=== PATIENT | male | born 1945 | race Two or more races ===

== ENCOUNTER 2024-09-07 11:33 | Inpatient (IN) | payer OTHER ==
[2024-09-06] MEDS: SODIUM CHLORIDE 0.9% 1,000 ML IV SCH (23:30)
[~2024-09-07] VITALS: Ht 165.1 cm; Wt 73.7 kg
[2024-09-07 01:00] VITALS: BP 123/60; PULSE 82; RESP 17; TEMP 98.2; O2SAT 97
--- NOTE | 2024-09-07 11:47 | ED.PDOC ---
History of Present Illness HPI Comments 79Y M with PMHx DM and UTI presents to ED via EMS for chief complaint general weakness x1day. Pt states he was dx with UTI by PCP and finished first round of abx 2 days ago. Symptoms of dysuria, urinary frequency, urgency, and LLQ abd pain did not resolve so pt started second round of abx yesterday. Per pt, he began to feel too weak to walk yesterday. Upon EMS arrival to scene, BS was 208 and pt was able to stand and walk with assistance. EMS did not notice the pt leaning to either side. Upon ED arrival, pt is awake, alert, and speaking in full sentences. No other symptoms reported. Time Seen by MD: 11:35 Reviewed Notes: Nurses Notes, Radio Television Technical Director Notes, Medications, Allergies Allergies: Coded Allergies: NO KNOWN ALLERGIES (Unverified , 09/07/24) Information Source: Patient, Emergency Med Personnel Mode of Arrival: EMS Severity: Moderate Timing: Days Duration: Since onset Prehospital treatment: Accucheck Past Medical History PAST MEDICAL HISTORY: DM, UTI'S Surgical History: Denies all surgeries Family History Family History: Unknown Social History Smoker: Non-Smoker Alcohol: Denies ETOH Use Drugs: Denies Drug Use Lives In: Home Constitutional: reports: weakness; denies: chills, diaphoresis, fatigue, fever, malaise, sweats, others EENTM: denies: blurred vision, double vision, ear bleeding, ear discharge, ear drainage, ear pain, ear ringing, eye pain, eye redness, hearing loss, mouth pain, mouth swelling, nasal discharge, nose bleeding, nose congestion, nose pain, photophobia, tearing, throat pain, throat swelling, voice changes, others Respiratory: denies: cough, hemoptysis, orthopnea, SOB at rest, shortness of breath, SOB with excertion, stridor, wheezing, others Cardiovascular: denies: chest pain, dizzy spells, diaphoresis, Dyspnea on exertion, edema, irregular heart beat, left arm pain, lightheadedness, palpitations, PND, syncope, others Gastrointestinal: reports: abdominal pain; denies: abdomen distended, blood streaked bowels, constipated, diarrhea, dysphagia, difficulty swallowing, hematemesis, melena, nausea, poor appetite, poor fluid intake, rectal bleeding, rectal pain, vomiting, others Genitourinary: reports: dysuria, frequency, urgency; denies: burning, flank pain, hematuria, incontinence, penile discharge, penile sore, pain, testicle pain, testicle swelling, others Neurological: denies: dizziness, fainting, headache, left sided numbness, left sided weakness, numbness, paresthesia, pre-existing deficit, right sided numbn ess, right sided weakness, seizure, speech problems, tingling, tremors, weakness, others Musculoskeletal: denies: back pain, gout, joint pain, joint swelling, muscle pain, muscle stiffness, neck pain, others Integumetry: denies: bruises, change in color, change in hair/nails, dryness, laceration, lesions, lumps, rash, wounds, others Allergic/Immunocompromised: denies: Difficulty Healing, Frequent Infections, Hives, Itching, others Hematologic/Lymphatic: denies: anemia, blood clots, easy bleeding, easy bruising, swollen glands, others Endocrine: denies: excessive hunger, excessive sweating, excessive thirst, excessive urination, flushing, intolerance to cold, intolerance to heat, unexplained weight gain, unexplained weight loss, others Psychiatric: denies: anxiety, bipolar disorder, depression, hopeless, panic disorder, schizophrenia, sleepless, suicidal, others All Other Systems: Reviewed and Negative Physical Exam General Appearance: No Apparent Distress, Normal HEENT: Normal ENT Inspection, Pharynx Normal, TMs Normal Neck: Full Range of Motion, Non-Tender, Normal, Normal Inspection Respiratory: Chest Non-Tender, Lungs Clear, No Accessory Muscle Use, No Respiratory Distress, Normal Breath Sounds Cardiovascular: No Edema, No JVD, No Murmur, No Gallop, Normal Peripheral Pulses, Regular Rate/Rhythm Breast Exam: Deferred Gastrointestinal: LLQ, No Organomegaly, No Pulsatile Mass, Normal Bowel Sounds, Tenderness Genitalia: Deferred Pelvic: Deferred Rectal: Deferred Extremities: No calf tenderness, Normal capillary refill, Normal inspection, Normal range of motion, Non-tender, No pedal edema Musculoskeletal : Apperance: Normal Neurologic: Alert, senior technical program manager II-XII nml as Tested, No Motor Deficits, Normal Affect, Normal Mood, No Sensory Deficits Cerebellar Function: Normal Reflexes: Normal Skin: Dry, Normal Color, Warm Lymphatic: No Adenopathy Was a procedure done? Was a procedure done?: No EKG EKG : Pulse Rate (adult): 104 Murdock: LAD Cardiac Rhythm: ST Block: None Hypertrophy: None ST: Nonsp Differential Dx Considerations may include: cva, hypoglycemia, hypotension, sepsis, uti, pneumonia, electrolyte disorders, failure to thrive X-Ray, Labs, Meds, VS Vital Signs Date Time Temp Pulse Resp B/P (MAP) Pulse Ox O2 Delivery O2 Flow Rate FiO2 09/07/24 14:00 94 16 98/49 (65) 96 09/07/24 13:44 104 09/07/24 12:00 107 16 94/46 (62) 92 09/07/24 11:54 99 18 96 Nasal Cannula* 2 28 09/07/24 11:54 100.6 99 16 115/56 (75) 97 100.6 09/07/24 11:42 99.3 18 20 116/67 (83) 95 Lab Test 09/07/24 14:20 09/07/24 12:39 09/07/24 12:00 09/07/24 11:49 Range/Units Lactic Acid Level 0.9 0.4-2.0 mmol/L Troponin I High Sensitivity 3 L 3 L 3 L </=54 ng/L Urine Color Yellow Yellow Urine Clarity Cloudy H Clear Urine pH 5.5 5.0-9.0 Urine Specific [place] 1.015 1.001-1.035 Urine Protein 2+ H Negative Urine Ketones Negative Negative Urine Blood 2+ H Negative /uL Urine Nitrite 1+ H Negative Urine Bilirubin Negative Negative Urine Urobilinogen Normal Negative mg/dL Urine Leukocyte Esterase 3+ Negative /uL Urine RBC 66 0 - 3 /hpf Urine WBC 6201 0 - 3 /hpf Urine WBC Clumps Present None Seen /hpf Urine Squamous Epithelial Cells Few <5 /hpf Urine Bacteria Mod H None Seen /hpf Urine Glucose Trace Normal mg/dL White Blood Count 8.1 4.4-10.8 10^3/uL Red Blood Count 3.67 L 4.5-5.90 10^6/uL Hemoglobin 11.3 L 13.5-17.5 g/dL Hematocrit 33.4 L 41.0-53.0 % Mean Corpuscular Volume 91.1 80.0-100.0 fL Mean Corpuscular Hemoglobin 30.9 28.0-32.0 pg Mean Corpuscular Hemoglobin Concent 33.9 32.0-36.0 g/dL Red Cell Distribution Width 13.4 11.8-14.3 % Platelet Count 236 140-450 10^3/uL Mean Platelet Volume 7.0 6.9-10.8 fL Neutrophils (%) (Auto) 79.2 37.0-80.0 % Lymphocytes (%) (Auto) 12.0 10.0-50.0 % Monocytes (%) (Auto) 8.1 0.0-12.0 % Eosinophils (%) (Auto) 0.2 0.0-7.0 % Basophils (%) (Auto) 0.5 0.0-2.0 % Neutrophils # (Auto) 6.4 1.6-8.6 10 ^3/uL Lymphocytes # (Auto) 1.0 0.4-5.4 10 ^3/uL Monocytes # (Auto) 0.7 0-1.3 10 ^3/uL Eosinophils # (Auto) 0 0-0.8 10 ^3/uL Basophils # (Auto) 0 0-0.2 10 ^3/uL Nucleated Red Blood Cells 0.0 % Sodium Level 134 L 136-145 mmol/L Potassium Level 4.8 3.5-5.1 mmol/L Chloride Level 106 98-107 mmol/L Carbon Dioxide Level 21 20-31 mmol/L Anion Gap 7 5-15 Blood Urea Nitrogen 25 H 9-23 mg/dL Creatinine 1.88 H 0.700-1.30 mg/dL Glomerular Filtration Rate Calc 35 >90 mL/min BUN/Creatinine Ratio 13.3 10.0-20.0 Serum Glucose 211 H 74-106 mg/dL Calcium Level 8.5 L 8.7-10.4 mg/dL Current Medications Medications (Trade) Dose Ordered Sig/[place] Route Start Time Stop Time Status Last Admin Ceftriaxone Sodium 50 ml @ 100 mls/hr ONCE ONCE IV 09/07/24 14:00 09/07/24 14:29 DC 09/07/24 14:36 Sodium Chloride 2,100 ml @ 2,100 mls/hr ONCE ONCE IV 09/07/24 14:00 09/07/24 14:59 DC 09/07/24 14:[address] [address] Ph: [phone] DIAGNOSTIC IMAGING Diagnostic Imaging Report : [id number] Signed PATIENT: DANY CARDONA ACCT: [id number] UNIT: [id number] : 1945 LOC: ER ROOM / BED: / AGE / SEX: 79 / M ADM STATUS: REG ER SERVICE 36 ORDERING PHYSICIAN: LEANNE HILLS MD PROCEDURE(s): CXRP - CHEST PORTABLE REASON: weakness ORDER NUMBER(s): [id number], ACCESSION NUMBER(s): [id number] CHEST RADIOGRAPH Indication: weakness Technique: Single frontal view of the chest was obtained COMPARISON: None FINDINGS: Lines and Tubes: None Lungs: Clear Pleura: No effusion. No pneumothorax. Cardiomediastinal contours: Unremarkable Bones: Unremarkable IMPRESSION: No acute disease. ATED BY: BRAYDEN MEYERS MD DICTATED DATE/TIME: 09/07/241223 SIGNED BY: BRAYDEN MEYERS MD SIGNED DATE/TIME: 09/07/241223 CC: [place] [id number] Ph: [phone] DIAGNOSTIC IMAGING Diagnostic Imaging Report : [id number] Signed PATIENT: DANY CARDONA ACCT: [id number] UNIT: [id number] : 1945 LOC: ER ROOM / BED: / AGE / SEX: 79 / M ADM STATUS: REG ER SERVICE ORDERING PHYSICIAN: LEANNE HILLS MD PROCEDURE(s): HWOCT - HEAD WITHOUT CONTRAST REASON: leg weakness ORDER NUMBER(s): [id number], ACCESSION NUMBER(s): [id number] EXAM: CT HEAD WITHOUT CONTRAST INDICATION: leg weakness TECHNIQUE: CT of the head without intravenous contrast. Radiation Dose : 1. Head: CT Dose: CTDI volume is 19.3 mGy. Dose-length product is 2557.3 mGy*cm The dose indicators for CT are the volume Computed Tomography (CT) Dose Index (CTDIvol) and the Dose Length Product (DLP), and are measured in units of mGy and mGy-cm, respectively. These indicators are not patient dose, but values generated from the CT scanner acquisition factors. The report includes radiation exposure data for exposures received during this examination. COMPARISON: None FINDINGS: There is no evidence of acute intracranial hemorrhage, extra-axial collection, mass effect, midline shift, herniation or hydrocephalus. The ventricles, sulci and cisterns are age appropriate. The nelson-white differentiation is intact. Patchy periventricular and subcortical white matter hypoattenuation is nonspecific but may be related to small vessel ischemic disease. Mild mucosal opacification of the ethmoid air cells. The surrounding soft tissues and osseous structures are unremarkable. IMPRESSION: No acute intracranial abnormality. Radiation optimization: All CT scans at this facility use at least one of these dose optimization techniques: automated exposure control mA and/or kV adjustment per patient size (includes targeted exams where dose is matched to clinical indication) or iterative reconstruction. ATED BY: BRAYDEN MEYERS MD DICTATED DATE/TIME: 09/07/241223 SIGNED BY: BRAYDEN MEYERS MD SIGNED DATE/TIME: 09/07/24 122 CC: [place] [id number] Ph: [phone] DIAGNOSTIC IMAGING Diagnostic Imaging Report : [id number] Signed PATIENT: DANY CARDONA ACCT: [id number] UNIT: [id number] : 1945 LOC: ER ROOM / BED: / AGE / SEX: 79 / M ADM STATUS: REG ER SERVICE 1130 ORDERING PHYSICIAN: LEANNE HILLS MD PROCEDURE(s): ABPL - CT AB PEL WO CON-NO ORAL OR IV REASON: pain ORDER NUMBER(s): [id number], ACCESSION NUMBER(s): [id number] CT ABDOMEN AND PELVIS WITHOUT CONTRAST CLINICAL HISTORY: pain TECHNIQUE: Multiple contiguous axial images of the abdomen and pelvis without intravenous contrast. The images were reformatted degenerate coronal and sagittal reconstructions. All CT scans at this medical facility are performed using dose modulation techniques as appropriate to a performed exam including the following:Automated exposure control was utilized; adjustment of the MA and/or KV according to patient size; and use of iterative reconstruction technique. Radiation Dose Information: CT Dose: CTDI volume is 19 mGy. Dose-length product is 1198 mGy*cm Comparison: None FINDINGS: Evaluation of the abdomen and pelvis is limited without intravenous contrast. The liver, gallbladder, pancreas, kidneys, adrenal glands, and spleen appear within normal limits. There is no gross evidence of abdominal lymphadenopathy. There is no free fluid or free air. The stomach grossly appears unremarkable. The small and large bowel loops demonstrate normal caliber. Normal caliber air-filled appendix is seen in the right lower quadrant abdomen. The abdominal aorta and IVC appear within normal limits. The prostate gland is enlarged. A poorly filled bladder demonstrates circumferential wall thickening likely related to chronic outlet obstruction.. There is no gross evidence of a pelvic mass. There is no free fluid collection. Lung bases are clear. There is no acute osseous abnormality. IMPRESSION: 1. There is no acute process in the abdomen and pelvis. 2. Prostatomegaly with likely chronic bladder outlet obstruction. HS:Y ATED BY: MICHAEL ARORA MD DICTATED DATE/TIME: 09/07/24 1229 SIGNED BY: MICHAEL ARORA MD SIGNED DATE/TIME: 09/07/24 1229 CC: Time of 1ST Reevaluation: 12:05 Reevaluation 1ST: Unchanged (cardiac rehabilitation specialist- st) Time of 2ND Reevaluation: 15:27 Reevaluation 2ND: Unchanged (cardiac rehabilitation specialist- st) Reevaluation 3RD: Improved (cardiac rehabilitation specialist nsr) Patient Education/Counseling: Diagnosis, Treatment, Prognosis, Need For Follow Up Family Education/Counseling: No Family Present Additional Information I reviewed the following notes from patient's past medical encounters: None The following tests were ordered, and results were reviewed by me: EKG, CBC, BMP, UA, Troponin x2, CXR, Head CT WO contrast, CT abd/pelvis WO contrast Additional Information was gathered from interviewing the following independent historians: EMS I reviewed and agreed with the following test results read by other providers: CXR, Head CT WO contrast, CT abd/pelvis WO contrast I discussed treatment and results with medical personnel. pt reportedly had finished a course of antibiotic for uti, but symptoms are not improved, so started a second course. he is now feeling weak, is relatively hypotensive, with UTI proven on UA. he may have uti with sepsis, causing hypotension and weakness. he will be admitted for further treatments. he does have enlarged prostate and evidence of bladder outlet obstruction. i will order a herrera to relieve any obstruction with evidence of a uti and sepsis. despite of the 30ml/kg, pt is still mildly hypotensive. pressor has been ordered but has not needed to be started yet. also due to the herrera relieve of the bladder volume, his BP may be unstable. i consulted Dr Anand, at [facility], who agreed to admit pt here. #[id number] Departure 1 Departure Time of Disposition: 15:25 Impression: Primary Impression: Generalized weakness Additional Impressions: Sepsis secondary to UTI Severe sepsis Renal insufficiency Disposition: ADMITTED INPATIENT Admit to: ICU Condition: Serious Discharged With: Self Critical Care Note Critical Care Time?: Yes (55 min-critical care time only) Critical care comment: Due to concerns for patients condition deteriorating, the care required my highest level of attention and readiness to intervene. I assessed the patient, reviewed the medical records, ordered the appropriate tests and treatments, then reassessed for results and responsiveness. I communicated with medical personnel and consultants and formulated a plan of care. Total critical care time excludes any procedures Stability Stability form required: No Heart Score Heart Score: Heart Score Response (Comments) Value History Slightly Suspicious 0 EKG Repolarization Disturb 1 Age >65 2 Risk Factors 1 or 2 risk factors 1 Troponin Normal limit 0 Total 4 I personally scribed for LEANNE HILLS MD ([facility]) on 09/07/24 at 11:47. Electronically submitted by Marline King ([email or web address]). I personally scribed for LEANNE HILLS MD ([email or web address]) on 09/07/24 at 12:31. Electronically submitted by Marline King ([email or web address]). I personally scribed for LEANNE HILLS MD ([email or web address]) on 09/07/24 at 12:32. Electronically submitted by Marline King ([employer]). I personally scribed for LEANNE HILLS MD ([facility]) on 09/07/24 at 12:35. Electronically submitted by Marline King ([email or web address]). LEANNE HILLS MD Sep 07, 2024 11:47
[2024-09-07 11:54] VITALS: PULSE 99; RESP 18; O2SAT 96
[2024-09-07 12:26] LABS: Basophils # (auto) 0 10 ^3/uL (0-0.2); Basophils % (auto) 0.5 % (0.0-2.0); Eosinophils # (auto) 0 10 ^3/uL (0-0.8); Eosinophils % (auto) 0.2 % (0.0-7.0); Hematocrit 33.4 % (41.0-53.0); Hemoglobin 11.3 g/dL (13.5-17.5); Mean Corpuscular Hemoglobin 30.9 pg (28.0-32.0); Mean Corpuscular Hgb Conc. 33.9 g/dL (32.0-36.0); Mean Corpuscular Volume 91.1 fL (80.0-100.0); Monocytes # (auto) 0.7 10 ^3/uL (0-1.3); Monocytes % (auto) 8.1 % (0.0-12.0); Neutrophils # (auto) 6.4 10 ^3/uL (1.6-8.6); Neutrophils % (auto) 79.2 % (37.0-80.0); Platelet Count (auto) 236 10^3/uL (140-450); Red Blood Cells 3.67 10^6/uL (4.5-5.90); Red Cell Distribution Width 13.4 % (11.8-14.3); White Blood Cell 8.1 10^3/uL (4.4-10.8)
--- NOTE | 2024-09-07 12:27 | DVH ---
CHEST RADIOGRAPH Indication: weakness Technique: Single frontal view of the chest was obtained COMPARISON: None FINDINGS: Lines and Tubes: None Lungs: Clear Pleura: No effusion. No pneumothorax. Cardiomediastinal contours: Unremarkable Bones: Unremarkable IMPRESSION: No acute disease.
--- NOTE | 2024-09-07 12:27 | DVH ---
EXAM: CT HEAD WITHOUT CONTRAST INDICATION: leg weakness TECHNIQUE: CT of the head without intravenous contrast. Radiation Dose : 1. Head: CT Dose: CTDI volume is 19.3 mGy. Dose-length product is 2557.3 mGy*cm The dose indicators for CT are the volume Computed Tomography (CT) Dose Index (CTDIvol) and the Dose Length Product (DLP), and are measured in units of mGy and mGy-cm, respectively. These indicators are not patient dose, but values generated from the CT scanner acquisition factors. The report includes radiation exposure data for exposures received during this examination. COMPARISON: None FINDINGS: There is no evidence of acute intracranial hemorrhage, extra-axial collection, mass effect, midline s hift, herniation or hydrocephalus. The ventricles, sulci and cisterns are age appropriate. The nelson-white differentiation is intact. Patchy periventricular and subcortical white matter hypoattenuation is nonspecific but may be related to small vessel ischemic disease. Mild mucosal opacification of the ethmoid air cells. The surrounding soft tissues and osseous structures are unremarkable. IMPRESSION: No acute intracranial abnormality. Radiation optimization: All CT scans at this facility use at least one of these dose optimization avani hniques: automated exposure control mA and/or kV adjustment per patient size (includes targeted exam s where dose is matched to clinical indication) or iterative reconstruction.
--- NOTE | 2024-09-07 12:32 | DVH ---
CT ABDOMEN AND PELVIS WITHOUT CONTRAST CLINICAL HISTORY: pain TECHNIQUE: Multiple contiguous axial images of the abdomen and pelvis without intravenous contrast. The images were reformatted degenerate coronal and sagittal reconstructions. All CT scans at this medical facility are performed using dose modulation techniques as appropriate t o a performed exam including the following:Automated exposure control was utilized; adjustment of the MA and/or KV according to patient size; and use of iterative reconstruction technique. Radiation Dose Information: CT Dose: CTDI volume is 19 mGy. Dose-length product is 1198 mGy*cm Comparison: None FINDINGS: Evaluation of the abdomen and pelvis is limited without intravenous contrast. The liver, gallbladder, pancreas, kidneys, adrenal glands, and spleen appear within normal limits. There is no gross evidence of abdominal lymphadenopathy. There is no free fluid or free air. The stomach grossly appears unremarkable. The small and large bowel loops demonstrate normal caliber . Normal caliber air-filled appendix is seen in the right lower quadrant abdomen. The abdominal aorta and IVC appear within normal limits. The prostate gland is enlarged. A poorly filled bladder demonstrates circumferential wall thickening likely related to chronic outlet obstruction.. There is no gross evidence of a pelvic mass. There is no free fluid collection. Lung bases are clear. There is no acute osseous abnormality. IMPRESSION: 1. There is no acute process in the abdomen and pelvis. 2. Prostatomegaly with likely chronic bladder outlet obstruction. HS:Y
[2024-09-07 12:36] LABS: Chloride 106 mmol/L (98-107); Potassium 4.8 mmol/L (3.5-5.1)
[2024-09-07 12:37] LABS: Anion Gap 7 (5-15); Carbon Dioxide 21 mmol/L (20-31)
[2024-09-07 12:42] LABS: BUN/Creatinine Ratio 13.3 (10.0-20.0); Calcium 8.5 mg/dL (8.7-10.4); Sodium 134 mmol/L (136-145)
[2024-09-07 12:45] LABS: Blood Urea Nitrogen 25 mg/dL (9-23); Glucose 211 mg/dL (74-106)
[2024-09-07 12:47] LABS: Urine Bacteria MOD /hpf (None Seen); Urine Blood 2+ /uL (Negative); Urine Protein, UAD 2+ (Negative); Urine Specific Gravity 1.015 (1.001-1.035); Urine Squamous Epithelial Cell FEW /hpf (<5); Urine Urobilinogen Normal (Negative); Urine WBC 6201 /hpf (0 - 3); Urine WBC Clumps PRESENT /hpf (None Seen); Urine pH 5.5 (5.0-9.0)
[2024-09-07 12:50] LABS: Urine Clarity Cloudy (Clear); Urine Color Yellow (Yellow)
[2024-09-07] MEDS: SODIUM CHLORIDE 0.9% 2,100 ML IV ONE (14:27)
[2024-09-07] MEDS: cefTRIAXone 1GM/50ML D5W 50 ML IV ONE (14:36)
[2024-09-07] MEDS ORDERED: ACETAMINOPHEN 325 MG TAB PO PRN (21:30)
[2024-09-07] MEDS ORDERED: DEXTROSE (50%) 50ML SYRG IV PRN (21:30)
[2024-09-07] MEDS ORDERED: ONDANSETRON HCL 4 MG/2 ML VIAL IV PRN (21:30)
[2024-09-07] MEDS ORDERED: DOCUSATE SOD 100 MG CAP PO PRN (21:30)
[2024-09-07] MEDS ORDERED: hydrALAZINE HCL 20 MG/ML VL IV PRN (21:30)
[2024-09-07 22:00] VITALS: PULSE 71; RESP 21; O2SAT 95
[2024-09-07] MEDS: ATORVASTATIN 20 MG TAB PO SCH (22:00)
[2024-09-07] MEDS: ACCU-CHEK COMFORT CURVE STRIP VI SCH (22:00)
[2024-09-07] MEDS: METOPROLOL TARTRATE 25 MG TAB PO SCH (22:00)
[2024-09-07] MEDS: InsuLIN REG 1unit/0.01ml Soln (100units/ml) SC SCH (22:53)
[2024-09-07] MEDS ORDERED: NITROGLYCERIN 0.4 MG SL TAB SL PRN (23:00)
[2024-09-07] MEDS ORDERED: MORPHINE SULFATE INJ 2 MG/ml SYRG IV PRN (23:00)
--- NOTE | 2024-09-07 23:00 | DVHHP2 ---
History of Present Illness Reason for Visit: Generalized weakness History of Present Illness The patient is a 79-year-old male with past medical history of DM, HTN, hyperlipidemia, and UTIs who presented to [facility] ED with complaint of generalized weakness. Patient reports he was diagnosed with UTI by PCP and finished first round of antibiotics 2 days ago. Patient continued to feel symptoms of dysuria, urinary frequency, urgency, and LLQ abdominal pain did not resolve so patient started second round of antibiotic yesterday. Patient was seen and evaluated in the ED, laboratory data shows WBC 8.1, platelets 236, sodium 134, potassium 4.8, BUN 25, creatinine 1.88, GFR 35, glucose 111, calcium 8.5, troponin three, urinalysis positive for urinary tract infection. Patient was started on IV antibiotic regimen Rocephin, please see medication orders section in the computer. On my assessment, patient denies chest pain, no headache, no dizziness, no abdominal pain, no nausea, no vomiting, no fever, no chills. Patient was admitted for further evaluation and medical management. Past Medical History DM, UTIs, HLD, and hypertension Past Surgical History Denies all surgeries Family History Reviewed, noncontributory to the management of this case. Past Social History The patient lives at home, denies smoking, alcohol or illicit drugs abuse. Review of Systems Constitutional: Yes: Weakness; No: Fever, Chills, Sweats, Malaise, Other Eyes: No: Pain, Vision change, Conjunctivae inflammation, Eyelid inflammation, Other, Redness ENT: No: Ear pain, Ear discharge, Nose pain, Nose discharge, Nose congestion, Mouth pain, Mouth swelling, Throat pain, Throat swelling, Other Respiratory: No: Cough, Dry, Shortness of breath, SOB with excertion, Wheezing, Hemoptysis, Pleuritic Pain, Sputum, Wheezing, Other Cardiovascular: No: Chest Pain, Palpitations, Orthopnea, Paroxysmal Noc. Dyspnea, Edema, Lt Headedness, Other Gastrointestinal: No: Nausea, Vomiting, Abdominal Pain, Diarrhea, Constipation, Melena, Hematochezia, Other Genitourinary: Dysuria, Frequency; No Incontinence, No Hematuria, No Retention, No Other Musculoskeletal: No: other, neck pain, shoulder pain, arm pain, back pain, hand pain, leg pain, foot pain Skin: No: Rash, Lesions, Jaundice, Bruising, Other Neurological: No: Weakness, Numbness, Incoordination, Change in speech, Confusion, Seizures, Other Allergies: Coded Allergies: NO KNOWN ALLERGIES (Unverified , 09/07/24) Medications Current Medications Medications Dose Ordered Sig/Ludwin Route Start Time Stop Time Status Last Admin Dose Admin Hydralazine HCl 10 mg Q6HP PRN IV 09/07/24 21:30 Atorvastatin Calcium 20 mg HS PO 09/07/24 22:00 09/07/24 22:00 20 MG Metoprolol Tartrate 25 mg BID PO 09/07/24 22:00 09/07/24 22:00 25 MG Ceftriaxone Sodium 50 ml @ 100 mls/hr DAILY@09 IV 09/08/24 09:00 Diagnostic Test (Pha) 1 strip ACHS 09/07/24 22:00 09/07/24 22:00 1 STRIP Insulin Human Regular HS SC 09/07/24 22:00 09/07/24 22:53 3 UNITS Insulin Human Regular AC SC 09/08/24 07:00 Dextrose 50 ml UD PRN IV 09/07/24 21:30 Sodium Chloride 1,000 ml @ 60 mls/hr [id number] IV 09/07/24 21:30 Acetaminophen/ Hydrocodone Bitart 1 tab Q4HP PRN PO 09/07/24 21:30 Ondansetron HCl 4 mg Q4HP PRN IV 09/07/24 21:30 Docusate Sodium 100 mg BIDPRN PRN PO 09/07/24 21:30 Acetaminophen 650 mg Q6HP PRN PO 09/07/24 21:30 Exam Vital Signs Vital Signs Date Time Temp Pulse Resp B/P (MAP) Pulse Ox O2 Delivery O2 Flow Rate FiO2 09/07/24 22:00 93 119/60 09/07/24 20:00 20 94 09/07/24 11:54 Nasal Cannula* 2 28 09/07/24 11:54 100.6 100.6 General Appearance: Alert, Oriented X3, Cooperative, No acute distress HEENT: Atraumatic, PERRLA, EOMI, Mucous membr. moist/pink Respiratory: Clear to auscultation, Normal air movement Cardiovascular: Regular rate, Normal S1, Normal S2, No murmurs Abdominal: Normal bowel sounds, Soft, No tenderness, No hepatospenomegaly, No masses Extremities: No clubbing, No cyanosis, No edema, Normal pulses, No tenderness/swelling Skin: No rashes, No breakdown, No significant lesion Neuro: Normal speech, Normal tone, Sensation intact, Cranial nerves 3-12 NL, Reflexes 2+, Other (Generalized weakness) Psych/Mental Status: Mental status NL, Mood NL Labs/Xrays Labs Test 09/07/24 20:16 09/07/24 16:29 09/07/24 12:00 09/07/24 11:49 Range/Units Troponin I High Sensitivity 4 </=54 ng/L Lactic Acid Level 1.1 0.4-2.0 mmol/L Urine Color Yellow Yellow Urine Clarity Cloudy H Clear Urine pH 5.5 5.0-9.0 Urine Specific [place] 1.015 1.001-1.035 Urine Protein 2+ H Negative Urine Ketones Negative Negative Urine Blood 2+ H Negative /uL Urine Nitrite 1+ H Negative Urine Bilirubin Negative Negative Urine Urobilinogen Normal Negative mg/dL Urine Leukocyte Esterase 3+ Negative /uL Urine RBC 66 0 - 3 /hpf Urine WBC 6201 0 - 3 /hpf Urine WBC Clumps Present None Seen /hpf Urine Squamous Epithelial Cells Few <5 /hpf Urine Bacteria Mod H None Seen /hpf Urine Glucose Trace Normal mg/dL White Blood Count 8.1 4.4-10.8 10^3/uL Red Blood Count 3.67 L 4.5-5.90 10^6/uL Hemoglobin 11.3 L 13.5-17.5 g/dL Hematocrit 33.4 L 41.0-53.0 % Mean Corpuscular Volume 91.1 80.0-100.0 fL Mean Corpuscular Hemoglobin 30.9 28.0-32.0 pg Mean Corpuscular Hemoglobin Concent 33.9 32.0-36.0 g/dL Red Cell Distribution Width 13.4 11.8-14.3 % Platelet Count 236 140-450 10^3/uL Mean Platelet Volume 7.0 6.9-10.8 fL Neutrophils (%) (Auto) 79.2 37.0-80.0 % Lymphocytes (%) (Auto) 12.0 10.0-50.0 % Monocytes (%) (Auto) 8.1 0.0-12.0 % Eosinophils (%) (Auto) 0.2 0.0-7.0 % Basophils (%) (Auto) 0.5 0.0-2.0 % Neutrophils # (Auto) 6.4 1.6-8.6 10 ^3/uL Lymphocytes # (Auto) 1.0 0.4-5.4 10 ^3/uL Monocytes # (Auto) 0.7 0-1.3 10 ^3/uL Eosinophils # (Auto) 0 0-0.8 10 ^3/uL Basophils # (Auto) 0 0-0.2 10 ^3/uL Nucleated Red Blood Cells 0.0 % Sodium Level 134 L 136-145 mmol/L Potassium Level 4.8 3.5-5.1 mmol/L Chloride Level 106 98-107 mmol/L Carbon Dioxide Level 21 20-31 mmol/L Anion Gap 7 5-15 Blood Urea Nitrogen 25 H 9-23 mg/dL Creatinine 1.88 H 0.700-1.30 mg/dL Glomerular Filtration Rate Calc 35 >90 mL/min BUN/Creatinine Ratio 13.3 10.0-20.0 Serum Glucose 211 H 74-106 mg/dL Calcium Level 8.5 L 8.7-10.4 mg/dL PATIENT: DANY CARDONA ACCT: [id number] UNIT: [id number] : 1945 LOC: ER ROOM / BED: / AGE / SEX: 79 / M ADM STATUS: REG ER SERVICE 1137 ORDERING PHYSICIAN: LEANNE HILLS MD PROCEDURE(s): ABPL - CT AB PEL WO CON-NO ORAL OR IV REASON: pain ORDER NUMBER(s): [id number], ACCESSION NUMBER(s): [id number] CT ABDOMEN AND PELVIS WITHOUT CONTRAST CLINICAL HISTORY: pain TECHNIQUE: Multiple contiguous axial images of the abdomen and pelvis without intravenous contrast. The images were reformatted degenerate coronal and sagittal reconstructions. All CT scans at this medical facility are performed using dose modulation techniques as appropriate to a performed exam including the following:Automated exposure control was utilized; adjustment of the MA and/or KV according to patient size; and use of iterative reconstruction technique. Radiation Dose Information: CT Dose: CTDI volume is 19 mGy. Dose-length product is 1198 mGy*cm Comparison: None FINDINGS: Evaluation of the abdomen and pelvis is limited without intravenous contrast. The liver, gallbladder, pancreas, kidneys, adrenal glands, and spleen appear within normal limits. There is no gross evidence of abdominal lymphadenopathy. There is no free fluid or free air. The stomach grossly appears unremarkable. The small and large bowel loops demonstrate normal caliber. Normal caliber air-filled appendix is seen in the right lower quadrant abdomen. The abdominal aorta and IVC appear within normal limits. The prostate gland is enlarged. A poorly filled bladder demonstrates circumferential wall thickening likely related to chronic outlet obstruction. There is no gross evidence of a pelvic mass. There is no free fluid collection. Lung bases are clear. There is no acute osseous abnormality. IMPRESSION: 1. There is no acute process in the abdomen and pelvis. 2. Prostatomegaly with likely chronic bladder outlet obstruction. ORDERING PHYSICIAN: LEANNE HILLS MD PROCEDURE(s): HWOCT - HEAD WITHOUT CONTRAST REASON: leg weakness ORDER NUMBER(s): [id number], ACCESSION NUMBER(s): [id number] EXAM: CT HEAD WITHOUT CONTRAST INDICATION: leg weakness TECHNIQUE: CT of the head without intravenous contrast. Radiation Dose : 1. Head: CT Dose: CTDI volume is 19.3 mGy. Dose-length product is 2557.3 mGy*cm The dose indicators for CT are the volume Computed Tomography (CT) Dose Index (CTDIvol) and the Dose Length Product (DLP), and are measured in units of mGy and mGy-cm, respectively. These indicators are not patient dose, but values generated from the CT scanner acquisition factors. The report includes radiation exposure data for exposures received during this examination. COMPARISON: None FINDINGS: There is no evidence of acute intracranial hemorrhage, extra-axial collection, mass effect, midline shift, herniation or hydrocephalus. The ventricles, sulci and cisterns are age appropriate. The nelson-white differentiation is intact. Patchy periventricular and subcortical white matter hypoattenuation is nonspecific but may be related to small vessel ischemic disease. Mild mucosal opacification of the ethmoid air cells. The surrounding soft tissues and osseous structures are unremarkable. IMPRESSION: No acute intracranial abnormality. ORDERING PHYSICIAN: LEANNE HILLS MD PROCEDURE(s): CXRP - CHEST PORTABLE REASON: weakness ORDER NUMBER(s): [id number], ACCESSION NUMBER(s): [id number] CHEST RADIOGRAPH Indication: weakness Technique: Single frontal view of the chest was obtained COMPARISON: None FINDINGS: Lines and Tubes: None Lungs: Clear Pleura: No effusion. No pneumothorax. Cardiomediastinal contours: Unremarkable Bones: Unremarkable IMPRESSION: No acute disease. Assessment/Plan Assessment/Plan Generalized weakness Urinary tract infection Renal insufficiency Diabetes mellitus with hyperglycemia Plan 1. Admit to telemetry unit 2. Breathing treatment 3. Pain control management 4. IV antibiotic management 5. Management of fluids and electrolytes 6. Consultation for hospitalist 7. Diagnostic test abdomen/pelvis CT 8. DVT prophylaxis-on SCDs 9. Repeat labs CBC, CMP in a.m. 10. Home medication reviewed and reconciled 11. Continue with current medical management 12. Treatment plan discussed with patient and RN. Patient verbalized understanding. Plan discussed with: Patient, Other (RN) My Orders Orders - GEOFF ADAIR DNP Procedure Category Date Status Time Urine Bacterial KELLEY 09/07/24 Logged Culture 21:16 Hydralazine Injection PHA 09/07/24 In Process (Apresoline Inject 21:30 Atorvastatin (Lipitor) PHA 09/07/24 In Process 22:00 Metoprolol Tartrate PHA 09/07/24 In Process Tablet (Lopressor Ta 22:00 Ceftriaxone 1gm/50ml PHA 09/08/24 In Process D5w (Rocephin) 09:00 Consistent DIET 09/08/24 Transmitted Carb(Ccho)Diabetes Breakfast Glucose Blood PHA 09/07/24 In Process (Accu-Chek Comfort 22:00 Insulin R (Human) PHA 09/07/24 In Process (Insulin R) 22:00 Insulin R (Human) PHA 09/08/24 In Process (Insulin R) 07:00 Dextrose 50% Syringe PHA 09/07/24 In Process 21:30 Allergies ANKUR 09/07/24 In Process 21:16 Code Status CODE 09/07/24 Transmitted 21:16 Sodium Chloride 0.9% PHA 09/07/24 In Process 21:30 Oxygen Per Hour RT 09/07/24 Transmitted 21:16 Hydrocodone-Acet PHA 09/07/24 In Process 5/325mg Tab (Merritt 21:30 Ondansetron Hcl PHA 09/07/24 In Process (Zofran) 21:30 Docusate Sodium PHA 09/07/24 In Process Capsule (Colace 21:30 Fall Risk Precautions ANKUR 09/07/[address] 21:16 Complete Blood Count LAB 09/08/24 Verified 04:00 Comprehensive LAB 09/08/24 Verified Metabolic Panel 04:00 Condition: Serious ANKUR 09/07/24 In Process 21:16 Acetaminophen Tablet PHA 09/07/24 In Process (Tylenol Tablet) 21:30 Sequential ANKUR 09/07/24 In Process Compression Device * Cardiology Consult CONS 09/07/24 Transmitted 21:42 Problem List: (1) Generalized weakness (2) Urinary tract infection (3) Renal insufficiency (4) Diabetes mellitus with hyperglycemia Date of Service: Sep 07, 2024 Billing Provider: GEOFF ADAIR DNP Common Visit Codes: [id number] INP/OBS CARE (HIGH) GEOFF ADAIR DNP Sep 07, 2024 23:00
[2024-09-08] VITALS (8 sets, daily range): BP systolic 112–148; BP diastolic 56–74; PULSE 63–82; RESP 17–20; TEMP 98.1–98.9; O2SAT 94–97
[2024-09-08] MEDS: InsuLIN REG 1unit/0.01ml Soln (100units/ml) SC SCH (05:51)
--- NOTE | 2024-09-08 07:44 | ECG ---
[facility] Test Date: 2024-09-07 Test Time: 11:52:24 Pat Name: DANY CARDONA Department: Emergency Room: 0248T B Gender: M Window Caser: Mikhail : 1945 Requested By: LEANNE HILLS Order Number: [id number] Reading MD: Caio Matos Measurements Intervals [place] Rate: 104 P: 38 ND: 156 QRS: -73 QRSD: 101 T: 11 QT: 319 QTc: 420 Interpretive Statements Sinus tachycardia LAD, consider left anterior fascicular block Abnormal R-wave progression, late transition Electronically Signed On 09-08-2024 13:12:10 PST by Caio Matos Please click the below link to view image of tracing.
[2024-09-08 08:16] LABS: Basophils # (auto) 0 10 ^3/uL (0-0.2); Basophils % (auto) 0.5 % (0.0-2.0); Eosinophils # (auto) 0 10 ^3/uL (0-0.8); Eosinophils % (auto) 0.2 % (0.0-7.0); Hematocrit 29.9 % (41.0-53.0); Hemoglobin 10.4 g/dL (13.5-17.5); Lymphocytes # (auto) 1.2 10 ^3/uL (0.4-5.4); Lymphocytes % (auto) 18.2 % (10.0-50.0); Mean Corpuscular Hemoglobin 31.6 pg (28.0-32.0); Mean Corpuscular Hgb Conc. 34.8 g/dL (32.0-36.0); Mean Corpuscular Volume 90.7 fL (80.0-100.0); Monocytes # (auto) 0.8 10 ^3/uL (0-1.3); Neutrophils # (auto) 4.6 10 ^3/uL (1.6-8.6); Neutrophils % (auto) 69.1 % (37.0-80.0); Platelet Count (auto) 212 10^3/uL (140-450); Red Cell Distribution Width 13.4 % (11.8-14.3); White Blood Cell 6.6 10^3/uL (4.4-10.8)
--- NOTE | 2024-09-08 08:29 | DVHPNRES ---
Progress Note Date Seen: Sep 08, 2024 Resident Creating Document: SUSANA PINO RESIDENT Medical Necessity Reason Pt with a Central, PICC or Fol: No The following are medically ne: Macario Catheter (RN) Subjective Review of Systems Patient is 79 years old male with past medical history of hypertension, diabetes mellitus type 2, hyperlipidemia, history of recurrent UTI came with a complaint of generalized weakness and difficulty in micturition. As per patient he has been feeling dizziness and tiredness for last 2 weeks, patient reports when he tried to get up and and go he feels dizzy and could not walk. Patient also reported feeling burning sensation during micturition, difficulty in micturition , dribbling of urine, increased frequency of micturition for last 2 weeks. As per patient he went to see a doctor at [facility] where he was given oral antibiotic for 1 week which did not help him that much. He still keep having the same symptoms he had before including difficulty micturition and dysuria and dizziness and generalized weakness. Patient presents with acute retention of urine. Patient denied any chest pain, shortness of breath, acute joint pain or swelling, change in vision or dysarthria. Patient reported being around sick people at his was having flu. Initial lab workup revealed mild hyponatremia sodium 134, SAEED, CKD? elevated serum creatinine 1.88, GFR 35, urinalysis revealed UTI with leukocyte esterase 2+, nitrite 1+, WBC 6201, RBC 66, bacteria moderately high. CT abdomen revealed -Prostatomegaly with likely chronic bladder outlet obstruction. CXR no acute cardiopulmonary disease, CT head no acute intracranial abnormality. Patchy periventricular and subcortical white matter hypoattenuation is nonspecific but maybe related to small-vessel ischemic disease. PMH-hypertension, diabetes mellitus type 2, hyperlipidemia, history of recurrent UTI. PSH- left ankle surgery in August 18, 2024, Allergy- shrimp, Personal History/ Social History- denies smoking/alcoholism/drug abuse Patient was seen today at the bedside. Patient reports feeling dizzy and very tired Cardiovascular- deny acute chest pain or shortness of breath or cough or palpitation Respiratory denies cough or short of breath or wheezing Gastrointestinal- denies any rectal bleeding, nausea or vomiting Musculoskeletal-denies acute joint swelling or tenderness or redness Neurological- denies acute dysarthria, dysphagia, change in vision Psychiatry- denies depression or SI or HI Skin- denies acute rash or purpura Patient was seen today for clinical evaluation. Labs and chart reviewed. Patient was hypotensive with tachycardia likely due to sepsis. Patient also fever, Patient still feeling tired and dizzy. Patient is being treated with IV antibiotic likely due to sepsis and IV fluid, Macario's catheter in place due to acute retention of urine likely due to BPH. Pending blood culture and uterine culture. Objective vital signs Vital Sign Date Time Temp Pulse Resp B/P (MAP) Pulse Ox O2 Delivery O2 Flow Rate FiO2 09/08/24 05:00 98.9 70 18 144/74 (97) 97 98.9 09/08/24 01:24 Nasal Cannula* 2 28 Total Intake and Output 09/07/24 09/07/24 09/08/24 15:00 23:00 07:00 Intake Total 40 ml 0 ml Output Total 800 ml Balance -760 ml 0 ml medications Current Medications Medications Dose Ordered Sig/Ludwin Route Start Time Stop Time Status Last Admin Dose Admin Hydralazine HCl 10 mg Q6HP PRN IV 09/07/24 21:30 Atorvastatin Calcium 20 mg HS PO 09/07/24 22:00 09/07/24 22:00 20 MG Metoprolol Tartrate 25 mg BID PO 09/07/24 22:00 09/07/24 22:00 25 MG Ceftriaxone Sodium 50 ml @ 100 mls/hr DAILY@09 IV 09/08/24 09:00 Diagnostic Test (Pha) 1 strip ACHS 09/07/24 22:00 09/08/24 05:50 1 STRIP Insulin Human Regular HS SC 09/07/24 22:00 09/07/24 22:53 3 UNITS Insulin Human Regular AC SC 09/08/24 07:00 09/08/24 05:51 2 UNITS Dextrose 50 ml UD PRN IV 09/07/24 21:30 Acetaminophen/ Hydrocodone Bitart 1 tab Q4HP PRN PO 09/07/24 21:30 Ondansetron HCl 4 mg Q4HP PRN IV 09/07/24 21:30 Docusate Sodium 100 mg BIDPRN PRN PO 09/07/24 21:30 Acetaminophen 650 mg Q6HP PRN PO 09/07/24 21:30 Nitroglycerin 0.4 mg Q5MINP PRN SL 09/07/24 23:00 Morphine Sulfate 2 mg Q30M PRN IV 09/07/24 23:00 Sodium Chloride 1,000 ml @ 100 mls/hr Q10H IV 09/08/24 08:15 Examination General examination- patient tired looking HEENT- PEERLA, no acute nasal discharge Cardiovascular- S1-S2 audible, rate and rhythm regular, no murmur Respiratory- CTAB, no wheeze or rhonchi Gastrointestinal-nontender, bowel sound+. Nondistended Renal system-left renal tenderness+ Musculoskeletal-no acute joint swelling or tenderness or redness# Lower extremity- no leg edema Neurological- cranial nerves intact, no acute dysarthria or dysphagia Psychiatry- denies depression or SI or HI Skin- no acute rash or purpura laboratory and microbiology Laboratory Tests 09/08/24 06:57 Test 09/08/24 06:57 Range/Units Serum Glucose Pending Problem List/Assessment/Plan Problem List/Assessment/Plan #Sepsis likely due to acute pyelonephritis #Suspected Acute pyelonephritis in the setting of recurrent UTI #Acute retention of urine likely due to BPH # dizziness tiredness likely due to acute pyelonephritis/recurrent UTI # SAEED likely due to urinary tract outflow obstruction/please and postrenal # hypertension # diabetes mellitus type 2 # hyperlipidemia # BPH CT abdomen revealed -Prostatomegaly with likely chronic bladder outlet obstruction. CXR no acute cardiopulmonary disease, CT head no acute intracranial abnormality. Patchy periventricular and subcortical white matter hypoattenuation is nonspecific but maybe related to small-vessel ischemic disease. Pending blood culture and uterine culture Continue IV normal saline at rate of 125 mL/hour Continue ceftriaxone 2 g IV daily Continue saline sliding scale as prescribed Macario's catheter Holding metoprolol last patient had a hypotensive episode Ordered orthostatic hypotension Patient with a sepsis likely due to acute pyelonephritis with the acute retention of urine from BPH. Patient was feeling dizzy and tired. Patient with fever, hypotension, tachycardia, on IV fluid. Pending blood culture and uterine culture, Patient is clinically unstable to be transferred. Goals of care/advance care planning; FULL CODE; discussed with the patient >15 minutes PUD prophylaxis: Famotidine DVT prophylaxis: Lovenox Plan discussed with Dr. [place], nursing staff, patient Total time spent on patient evaluation, chart review, assessment and plan, discussion discussion >30 minutes Plan discussed with: Patient Plan discussed with: Patient, Other (RN) My Orders My Orders Orders - SUSANA PINO Procedure Category Date Status Time Magnesium LAB 09/09/24 Verified 04:00 Thyroid Stimulating LAB 09/08/24 In Process Hormone 08:11 Sodium Chloride 0.9% PHA 09/08/24 In Process 08:15 Date of Service: Sep 08, 2024 Billing Provider: ESME CANADA MD Common Visit Codes: [id number] INP/OBS CARE(HIGH) Secondary Visit Codes: [id number] CARE PLAN 30 MINUTES SUSANA PINO Sep 08, 2024 08:29 ESME CANADA MD Sep 08, 2024 15:15
[2024-09-08 08:30] LABS: Alanine Aminotransferase 11 U/L (7-40); Alkaline Phosphatase 92 U/L (46-116); Anion Gap 8 (5-15); BUN/Creatinine Ratio 12.9 (10.0-20.0); Blood Urea Nitrogen 18 mg/dL (9-23); Carbon Dioxide 22 mmol/L (20-31); Potassium 4.4 mmol/L (3.5-5.1); Sodium 139 mmol/L (136-145)
[2024-09-08 08:31] LABS: Albumin 3.6 g/dL (3.2-4.8)
[2024-09-08 08:32] LABS: Aspartate Aminotransferase 10 U/L (13-40); Bilirubin, Total 0.5 mg/dL (0.2-1.0); Calcium 8.5 mg/dL (8.7-10.4); Chloride 109 mmol/L (98-107); Glucose 156 mg/dL (74-106); Total Protein 6.4 g/dL (5.7-8.2)
[2024-09-08] MEDS: cefTRIAXone 1GM/50ML D5W 50 ML IV SCH (09:20)
[2024-09-08] MEDS: TAMSULOSIN HYDROCHLORIDE 0.4 MG CAP PO ONE (09:36)
[2024-09-08] MEDS: SODIUM CHLORIDE 0.9% 1,000 ML IV SCH (09:40)
[2024-09-08] MEDS: cefTRIAXone 1GM/50ML D5W 50 ML IV ONE (10:30)
[2024-09-08] MEDS: LACTULOSE 20Gm/30ML SOLN PO ONE (14:30)
[2024-09-08] MEDS: TAMSULOSIN HYDROCHLORIDE 0.4 MG CAP PO SCH (18:00)
[2024-09-08] MEDS: HYDROcodone-ACET 5/325MG TAB PO PRN (20:21)
[2024-09-08] MEDS ORDERED: LACTULOSE 20Gm/30ML SOLN PO PRN (22:00)
[2024-09-08] MEDS ORDERED: EPINEPHrine HCL 1 MG/10 ML SYRG IV ONE (22:11)
[2024-09-09 01:00] VITALS: BP 140/59; PULSE 64; RESP 19; TEMP 97.5; O2SAT 97
[2024-09-09 05:00] VITALS: BP 139/65; PULSE 67; RESP 19; TEMP 97.7; O2SAT 97
[2024-09-09 06:49] LABS: Basophils # (auto) 0 10 ^3/uL (0-0.2); Basophils % (auto) 0.4 % (0.0-2.0); Eosinophils # (auto) 0.1 10 ^3/uL (0-0.8); Hematocrit 32.7 % (41.0-53.0); Hemoglobin 11.3 g/dL (13.5-17.5); Lymphocytes # (auto) 1.1 10 ^3/uL (0.4-5.4); Lymphocytes % (auto) 17.4 % (10.0-50.0); Mean Corpuscular Hemoglobin 31.3 pg (28.0-32.0); Mean Corpuscular Hgb Conc. 34.6 g/dL (32.0-36.0); Mean Corpuscular Volume 90.7 fL (80.0-100.0); Monocytes # (auto) 0.7 10 ^3/uL (0-1.3); Monocytes % (auto) 11.2 % (0.0-12.0); Neutrophils # (auto) 4.5 10 ^3/uL (1.6-8.6); Platelet Count (auto) 229 10^3/uL (140-450); Red Cell Distribution Width 13.3 % (11.8-14.3); White Blood Cell 6.4 10^3/uL (4.4-10.8)
[2024-09-09 06:59] LABS: Anion Gap 6 (5-15); Carbon Dioxide 24 mmol/L (20-31); Potassium 4.6 mmol/L (3.5-5.1); Sodium 139 mmol/L (136-145)
[2024-09-09 07:00] LABS: Calcium 8.8 mg/dL (8.7-10.4)
[2024-09-09 07:05] LABS: BUN/Creatinine Ratio 11.9 (10.0-20.0); Blood Urea Nitrogen 14 mg/dL (9-23)
[2024-09-09 07:12] LABS: Chloride 109 mmol/L (98-107); Glucose 178 mg/dL (74-106); Magnesium 1.4 mg/dL (1.6-2.6)
[2024-09-09 08:10] VITALS: PULSE 64
[2024-09-09 08:58] VITALS: BP 121/61; PULSE 66; RESP 17; TEMP 97.4; O2SAT 96
[2024-09-09] MEDS: MAGNESIUM SULFATE 1GM/100ML 100 ML IV ONE (09:39)
--- NOTE | 2024-09-09 09:44 | DVHPNRES ---
Progress Note Medical Necessity Reason Pt with a Central, PICC or Fol: No The following are medically ne: Macario Catheter (RN) Subjective Review of Systems Patient is 79 years old male with past medical history of hypertension, diabetes mellitus type 2, hyperlipidemia, history of recurrent UTI came with a complaint of generalized weakness and difficulty in micturition. As per patient he has been feeling dizziness and tiredness for last 2 weeks, patient reports when he tried to get up and and go he feels dizzy and could not walk. Patient also reported feeling burning sensation during micturition, difficulty in micturition , dribbling of urine, increased frequency of micturition for last 2 weeks. As per patient he went to see a doctor at [facility] where he was given oral antibiotic for 1 week which did not help him that much. He still keep having the same symptoms he had before including difficulty micturition and dysuria and dizziness and generalized weakness. Patient presents with acute retention of urine. Patient denied any chest pain, shortness of breath, acute joint pain or swelling, change in vision or dysarthria. Patient reported being around sick people at his was having flu. Initial lab workup revealed mild hyponatremia sodium 134, SAEED, CKD? elevated serum creatinine 1.88, GFR 35, urinalysis revealed UTI with leukocyte esterase 2+, nitrite 1+, WBC 6201, RBC 66, bacteria moderately high. CT abdomen revealed -Prostatomegaly with likely chronic bladder outlet obstruction. CXR no acute cardiopulmonary disease, CT head no acute intracranial abnormality. Patchy periventricular and subcortical white matter hypoattenuation is nonspecific but maybe related to small-vessel ischemic disease. PMH-hypertension, diabetes mellitus type 2, hyperlipidemia, history of recurrent UTI. PSH- left ankle surgery in August 18, 2024, Allergy- shrimp, Personal History/ Social History- denies smoking/alcoholism/drug abuse Patient was seen today at the bedside. Patient reports feeling dizzy and very tired Cardiovascular- deny acute chest pain or shortness of breath or cough or palpitation Respiratory denies cough or short of breath or wheezing Gastrointestinal- denies any rectal bleeding, nausea or vomiting Musculoskeletal-denies acute joint swelling or tenderness or redness Neurological- denies acute dysarthria, dysphagia, change in vision Psychiatry- denies depression or SI or HI Skin- denies acute rash or purpura Patient was seen today for clinical evaluation. Labs and chart reviewed. Patient was hypotensive with tachycardia likely due to sepsis. Patient also fever, Patient still feeling tired and dizzy. Patient is being treated with IV antibiotic likely due to sepsis and IV fluid, Macario's catheter in place due to acute retention of urine likely due to BPH. Pending blood culture and uterine culture. Objective Objective vital signs Vital Sign Date Time Temp Pulse Resp B/P (MAP) Pulse Ox O2 Delivery O2 Flow Rate FiO2 09/09/24 09:39 71 155/66 09/09/24 08:58 97.4 17 96 97.4 09/08/24 20:00 Room Air* 0 21 Total Intake and Output 09/08/24 09/08/24 09/09/24 15:00 23:00 07:00 Intake Total 200 ml Output Total 1700 ml 400 ml Balance -1700 ml -200 ml medications Current Medications Medications Dose Ordered Sig/Ludwin Route Start Time Stop Time Status Last Admin Dose Admin Hydralazine HCl 10 mg Q6HP PRN IV 09/07/24 21:30 Atorvastatin Calcium 20 mg HS PO 09/07/24 22:00 09/07/24 22:00 20 MG Metoprolol Tartrate 25 mg BID PO 09/07/24 22:00 09/09/24 09:39 25 MG Diagnostic Test (Pha) 1 strip ACHS 09/07/24 22:00 09/09/24 05:49 1 STRIP Insulin Human Regular HS SC 09/07/24 22:00 09/08/24 22:07 3 UNITS Insulin Human Regular AC SC 09/08/24 07:00 09/09/24 05:51 3 UNITS Dextrose 50 ml UD PRN IV 09/07/24 21:30 Acetaminophen/ Hydrocodone Bitart 1 tab Q4HP PRN PO 09/07/24 21:30 09/09/24 06:10 1 TAB Ondansetron HCl 4 mg Q4HP PRN IV 09/07/24 21:30 Docusate Sodium 100 mg BIDPRN PRN PO 09/07/24 21:30 Acetaminophen 650 mg Q6HP PRN PO 09/07/24 21:30 Nitroglycerin 0.4 mg Q5MINP PRN SL 09/07/24 23:00 Morphine Sulfate 2 mg Q30M PRN IV 09/07/24 23:00 Sodium Chloride 1,000 ml @ 100 mls/hr Q10H IV 09/08/24 08:15 09/09/24 04:10 100 MLS/HR Tamsulosin HCl 0.4 mg QPM PO 09/08/24 18:00 09/08/24 18:00 0.4 MG Ceftriaxone Sodium/Dextrose 50 ml @ 50 mls/hr DAILY IV 09/09/24 10:00 Lactulose 30 ml BIDPRN PRN PO 09/08/24 22:00 laboratory and microbiology Laboratory Tests 09/09/24 05:49 Test 09/09/24 05:49 Range/Units Serum Glucose 178 H 74-106 mg/dL Microbiology Date/Time Source Procedure Growth Status 09/07/24 14:30 Blood Blood Culture - Preliminary NO GROWTH AFTER 24 HOURS OF INCUBATION. Resulted Problem List/Assessment/Plan Problem List/Assessment/Plan #Sepsis likely due to acute pyelonephritis #Suspected Acute pyelonephritis in the setting of recurrent UTI #Acute retention of urine likely due to BPH # dizziness tiredness likely due to acute pyelonephritis/recurrent UTI # SAEED likely due to urinary tract outflow obstruction/please and postrenal # hypertension # diabetes mellitus type 2 # hyperlipidemia # BPH CT abdomen revealed -Prostatomegaly with likely chronic bladder outlet obstruction. CXR no acute cardiopulmonary disease, CT head no acute intracranial abnormality. Patchy periventricular and subcortical white matter hypoattenuation is nonspecific but maybe related to small-vessel ischemic disease. Pending blood culture and uterine culture Continue IV normal saline at rate of 125 mL/hour Continue ceftriaxone 2 g IV daily Continue saline sliding scale as prescribed Macario's catheter Holding metoprolol last patient had a hypotensive episode Ordered orthostatic hypotension Patient with a sepsis likely due to acute pyelonephritis with the acute retention of urine from BPH. Patient was feeling dizzy and tired. Patient with fever, hypotension, tachycardia, on IV fluid. Pending blood culture and uterine culture, Patient is clinically unstable to be transferred. Goals of care/advance care planning; FULL CODE; discussed with the patient >15 minutes PUD prophylaxis: Famotidine DVT prophylaxis: Lovenox Plan discussed with Dr. [place], nursing staff, patient Total time spent on patient evaluation, chart review, assessment and plan, discussion discussion >30 minutes Plan discussed with: Patient My Orders My Orders Orders - SUSANA PINO RESIDENT Procedure Category Date Status Time Ceftriaxone 2gm/50ml PHA 09/09/24 In Process D5w (Rocephin 2gm/5 10:00 Lactulose Oral PHA 09/08/24 In Process 22:00 SUSANA PINO RESIDENT Sep 09, 2024 09:44
[2024-09-09] MEDS: cefTRIAXone 2GM/50ML D5W 50 ML IV SCH (10:18)
--- NOTE | 2024-09-09 11:38 | DVHDSRES ---
Discharge Summary Date of Admission Resident Creating Document: USSANA PINO Sep 07, 2024 at 22:59 Date of Discharge: Sep 09, 2024 Labs/Diagnostic Data: Laboratory Results Test 09/09/24 11:07 09/09/24 05:49 09/08/24 06:57 09/07/24 20:16 POC Glucose 245 mg/dl (70-106) White Blood Count 6.4 10^3/uL (4.4-10.8) Red Blood Count 3.60 10^6/uL (4.5-5.90) Hemoglobin 11.3 g/dL (13.5-17.5) Hematocrit 32.7 % (41.0-53.0) Mean Corpuscular Volume 90.7 fL (80.0-100.0) Mean Corpuscular Hemoglobin 31.3 pg (28.0-32.0) Mean Corpuscular Hemoglobin Concent 34.6 g/dL (32.0-36.0) Red Cell Distribution Width 13.3 % (11.8-14.3) Platelet Count 229 10^3/uL (140-450) Mean Platelet Volume 6.9 fL (6.9-10.8) Neutrophils (%) (Auto) 70.0 % (37.0-80.0) Lymphocytes (%) (Auto) 17.4 % (10.0-50.0) Monocytes (%) (Auto) 11.2 % (0.0-12.0) Eosinophils (%) (Auto) 1.0 % (0.0-7.0) Basophils (%) (Auto) 0.4 % (0.0-2.0) Neutrophils # (Auto) 4.5 10 ^3/uL (1.6-8.6) Lymphocytes # (Auto) 1.1 10 ^3/uL (0.4-5.4) Monocytes # (Auto) 0.7 10 ^3/uL (0-1.3) Eosinophils # (Auto) 0.1 10 ^3/uL (0-0.8) Basophils # (Auto) 0 10 ^3/uL (0-0.2) Nucleated Red Blood Cells 0.0 % Sodium Level 139 mmol/L (136-145) Potassium Level 4.6 mmol/L (3.5-5.1) Chloride Level 109 mmol/L (98-107) Carbon Dioxide Level 24 mmol/L (20-31) Anion Gap 6 (5-15) Blood Urea Nitrogen 14 mg/dL (9-23) Creatinine 1.18 mg/dL (0.700-1.30) Glomerular Filtration Rate Calc 62 mL/min (>90) BUN/Creatinine Ratio 11.9 (10.0-20.0) Serum Glucose 178 mg/dL (74-106) Calcium Level 8.8 mg/dL (8.7-10.4) Magnesium Level 1.4 mg/dL (1.6-2.6) Total Bilirubin 0.5 mg/dL (0.2-1.0) Aspartate Amino Transferase (AST) 10 U/L (13-40) Alanine Aminotransferase (ALT) 11 U/L (7-40) Alkaline Phosphatase 92 U/L (46-116) Total Protein 6.4 g/dL (5.7-8.2) Albumin 3.6 g/dL (3.2-4.8) Thyroid Stimulating Hormone (TSH) 0.61 uIU/mL (0.55-4.78) Troponin I High Sensitivity 4 ng/L (</=54) Test 09/07/24 16:29 09/07/24 12:00 Lactic Acid Level 1.1 mmol/L (0.4-2.0) Urine Color Yellow (Yellow) Urine Clarity Cloudy (Clear) Urine pH 5.5 (5.0-9.0) Urine Specific Powell 1.015 (1.001-1.035) Urine Protein 2+ (Negative) Urine Ketones Negative (Negative) Urine Blood 2+ /uL (Negative) Urine Nitrite 1+ (Negative) Urine Bilirubin Negative (Negative) Urine Urobilinogen Normal mg/dL (Negative) Urine Leukocyte Esterase 3+ /uL (Negative) Urine RBC 66 /hpf (0 - 3) Urine WBC 6201 /hpf (0 - 3) Urine WBC Clumps Present /hpf (None Seen) Urine Squamous Epithelial Cells Few /hpf (<5) Urine Bacteria Mod /hpf (None Seen) Urine Glucose Trace mg/dL (Normal) Other Laboratory Tests 09/09/24 05:49 Brief Hx & Hospital Course: Patient is 79 years old male with past medical history of hypertension, diabetes mellitus type 2, hyperlipidemia, history of recurrent UTI came with a complaint of generalized weakness and difficulty in micturition. As per patient he has been feeling dizziness and tiredness for last 2 weeks, patient reports when he tried to get up and and go he feels dizzy and could not walk. Patient also reported feeling burning sensation during micturition, difficulty in micturition, dribbling of urine, increased frequency of micturition for last 2 weeks. As per patient he went to see a doctor at [facility] where he was given oral antibiotic for 1 week which did not help him that much. He still keep having the same symptoms he had before including difficulty micturition and dysuria and dizziness and generalized weakness. Patient presents with acute retention of urine. Patient denied any chest pain, shortness of breath, acute joint pain or swelling, change in vision or dysarthria. Patient reported being around sick people at his was having flu. Initial lab workup revealed mild hyponatremia sodium 134, SAEED, CKD? elevated serum creatinine 1.88, GFR 35, urinalysis revealed UTI with leukocyte esterase 2+, nitrite 1+, WBC 6201, RBC 66, bacteria moderately high. CT abdomen revealed -Prostatomegaly with likely chronic bladder outlet obstruction. CXR no acute cardiopulmonary disease, CT head no acute intracranial abnormality. Patchy periventricular and subcortical white matter hypoattenuation is nonspecific but maybe related to small-vessel ischemic disease. During hospital course patient was treated conservatively. Patient's fever subsided. His blood pressure improved, patient was clinically feeling better. Patient was adamant about going home. Patient was discharged home with Augmentin 500 mg p.o. b.i.d. for 10 days, Flomax 0.4 mg p.o. daily. Patient has Macario's catheter was removed. Post vital bladder scan revealed only 7 mL of urine. No acute recreation of urine post removal of catheter. Patient was advised to follow up with the primary care physician in 1 week and also to follow up with the urologist in 1-2 week for further evaluation on care of BPH. Med were sent to the pharmacy electronically. Patient was hemodynamically stable on discharge General examination- patient reports feeling very well today HEENT- PEERLA, no acute nasal discharge Cardiovascular- S1-S2 audible, rate and rhythm regular, no murmur Respiratory- CTAB, no wheeze or rhonchi Gastrointestinal-nontender, bowel sound+. Nondistended Musculoskeletal-no acute joint swelling or tenderness or redness# Lower extremity- no leg edema Neurological- cranial nerves intact, no acute dysarthria or dysphagia Psychiatry- denies depression or SI or HI Skin- no acute rash or purpura Operations or Procedures [address] [address] Ph: [phone] DIAGNOSTIC IMAGING Diagnostic Imaging Report : [id number] Signed PATIENT: DANY CARDONA ACCT: [id number] UNIT: [id number] : 1945 LOC: ER ROOM / BED: / AGE / SEX: 79 / M ADM STATUS: REG ER SERVICE [id number] ORDERING PHYSICIAN: LEANNE HILLS MD PROCEDURE(s): ABPL - CT AB PEL WO CON-NO ORAL OR IV REASON: pain ORDER NUMBER(s): [id number], ACCESSION NUMBER(s): [id number] CT ABDOMEN AND PELVIS WITHOUT CONTRAST CLINICAL HISTORY: pain TECHNIQUE: Multiple contiguous axial images of the abdomen and pelvis without intravenous contrast. The images were reformatted degenerate coronal and sagittal reconstructions. All CT scans at this medical facility are performed using dose modulation techniques as appropriate to a performed exam including the following:Automated exposure control was utilized; adjustment of the MA and/or KV according to patient size; and use of iterative reconstruction technique. Radiation Dose Information: CT Dose: CTDI volume is 19 mGy. Dose-length product is 1198 mGy*cm Comparison: None FINDINGS: Evaluation of the abdomen and pelvis is limited without intravenous contrast. The liver, gallbladder, pancreas, kidneys, adrenal glands, and spleen appear within normal limits. There is no gross evidence of abdominal lymphadenopathy. There is no free fluid or free air. The stomach grossly appears unremarkable. The small and large bowel loops demonstrate normal caliber. Normal caliber air-filled appendix is seen in the right lower quadrant abdomen. The abdominal aorta and IVC appear within normal limits. The prostate gland is enlarged. A poorly filled bladder demonstrates circumferential wall thickening likely related to chronic outlet obstruction.. There is no gross evidence of a pelvic mass. There is no free fluid collection. Lung bases are clear. There is no acute osseous abnormality. IMPRESSION: 1. There is no acute process in the abdomen and pelvis. 2. Prostatomegaly with likely chronic bladder outlet obstruction. HS:Y ATED BY: MICHAEL ARORA MD DICTATED DATE/TIME: 09/07/241228 SIGNED BY: MICHAEL ARORA MD SIGNED DATE/TIME: 09/07/241228 CC: [place] [id number] Ph: [phone] DIAGNOSTIC IMAGING Diagnostic Imaging Report : [id number] Signed PATIENT: DANY CARDONA ACCT: [id number] UNIT: [id number] : 1945 LOC: ER ROOM / BED: / AGE / SEX: 79 / M ADM STATUS: REG ER SERVICE 113 ORDERING PHYSICIAN: LEANNE HILLS MD PROCEDURE(s): CXRP - CHEST PORTABLE REASON: weakness ORDER NUMBER(s): [id number], ACCESSION NUMBER(s): [id number] CHEST RADIOGRAPH Indication: weakness Technique: Single frontal view of the chest was obtained COMPARISON: None FINDINGS: Lines and Tubes: None Lungs: Clear Pleura: No effusion. No pneumothorax. Cardiomediastinal contours: Unremarkable Bones: Unremarkable IMPRESSION: No acute disease. ATED BY: BRAYDEN MEYERS MD DICTATED DATE/TIME: 09/07/241223 SIGNED BY: BRAYDEN MEYERS MD SIGNED DATE/TIME: 09/07/241223 CC: [place] [id number] Ph: [phone] DIAGNOSTIC IMAGING Diagnostic Imaging Report : [id number] Signed PATIENT: DANY CARDONA ACCT: [id number] UNIT: [id number] : 1945 LOC: ER ROOM / BED: / AGE / SEX: 79 / M ADM STATUS: REG ER SERVICE 113 ORDERING PHYSICIAN: LEANNE HILLS MD PROCEDURE(s): HWOCT - HEAD WITHOUT CONTRAST REASON: leg weakness ORDER NUMBER(s): [id number], ACCESSION NUMBER(s): [id number] EXAM: CT HEAD WITHOUT CONTRAST INDICATION: leg weakness TECHNIQUE: CT of the head without intravenous contrast. Radiation Dose : 1. Head: CT Dose: CTDI volume is 19.3 mGy. Dose-length product is 2557.3 mGy*cm The dose indicators for CT are the volume Computed Tomography (CT) Dose Index (CTDIvol) and the Dose Length Product (DLP), and are measured in units of mGy and mGy-cm, respectively. These indicators are not patient dose, but values generated from the CT scanner acquisition factors. The report includes radiation exposure data for exposures received during this examination. COMPARISON: None FINDINGS: There is no evidence of acute intracranial hemorrhage, extra-axial collection, mass effect, midline shift, herniation or hydrocephalus. The ventricles, sulci and cisterns are age appropriate. The nelson-white differentiation is intact. Patchy periventricular and subcortical white matter hypoattenuation is nonspecific but may be related to small vessel ischemic disease. Mild mucosal opacification of the ethmoid air cells. The surrounding soft tissues and osseous structures are unremarkable. IMPRESSION: No acute intracranial abnormality. Radiation optimization: All CT scans at this facility use at least one of these dose optimization techniques: automated exposure control mA and/or kV adjustment per patient size (includes targeted exams where dose is matched to clinical indication) or iterative reconstruction. ATED BY: BRAYDEN MEYERS MD DICTATED DATE/TIME: 09/07/24 122 SIGNED BY: BRAYDEN MEYERS MD SIGNED DATE/TIME: 09/07/24 1224 CC: Condition at Discharge: Stable Final Diagnosis/Problems List #Sepsis likely due to acute pyelonephritis #Suspected Acute pyelonephritis in the setting of recurrent UTI #Acute retention of urine likely due to BPH # dizziness tiredness likely due to acute pyelonephritis/recurrent UTI # SAEED likely due to urinary tract outflow obstruction/please and postrenal # hypertension # Diabetes mellitus type 2 # hyperlipidemia # BPH Discharge Disposition: Home Discharge Instruct/Medications Diet: Consistent carbohydrate, Cardiac 2g Na,low cholest Activity: Light activity Follow Up/Referral: Please follow up with your primary care physician in 1 week Follow up with the urologist for BPH Please avoid dehydration and nephrotoxic drugs Medications: Augmentin p.o. b.i.d. for 10 days Flomax 0.4 mg p.o. daily Resume other home medications Discharge Statement: "Patient was advised to return to the ER or call 911 if any headaches, dizziness, shortness of breath, chest pain, abdominal pain, bleeding, fevers, or worsening of medical condition. Patient was counseled about treatment plan, medications, possible side effects, patientverbalized understanding. All questions were answered to the best of my ability. This discharge took greater then 30 minutes in planning, reviewing documentation, counseling the patient, and discussing with other team members." ASSESSMENT ASSESSMENT Assessment #Sepsis likely due to acute pyelonephritis #Suspected Acute pyelonephritis in the setting of recurrent UTI #Acute retention of urine likely due to BPH # dizziness tiredness likely due to acute pyelonephritis/recurrent UTI # SAEED likely due to urinary tract outflow obstruction/please and postrenal # hypertension # diabetes mellitus type 2 # hyperlipidemia # BPH Date of Service: Sep 09, 2024 Billing Provider: JORGE JOHNSON MD Common Visit Codes: 02287-BSP/OBS DISCH DAY >30min SUSANA PINO RESIDENT Sep 09, 2024 11:38 JORGE JOHNSON MD Sep 11, 2024 21:49
[2024-09-09] MEDS ORDERED: AMOX500T86 PO ×2 (11:41→12:21)
[2024-09-09] MEDS ORDERED: TAMS-35 PO ×2 (11:41→12:21)
[2024-09-09 13:00] VITALS: BP 147/61; PULSE 59; RESP 17; TEMP 98; O2SAT 97
[2024-09-09 13:15] VITALS: BP 155/66; PULSE 71; TEMP 36.7
== END 2024-09-09 14:00 | disposition home or self-care (01) | DRG 871 ==
LOC: ER 11:33 → EDBD 11:33 → TELE 22:59 → TELE-EAST 23:58
PROVIDERS: ADMIT Internal Medicine Geriatric Medicine; ATTEND Internal Medicine Geriatric Medicine
DX: A41.9 Sepsis, unspecified organism (principal); N17.0 Acute kidney failure with tubular necrosis; N10 Acute pyelonephritis; E11.65 Type 2 diabetes mellitus with hyperglycemia; E78.5 Hyperlipidemia, unspecified; N28.9 Disorder of kidney and ureter, unspecified; N40.1 Benign prostatic hyperplasia with lower urinary tract symptoms; R33.8 Other retention of urine; N13.9 Obstructive and reflux uropathy, unspecified; I10 Essential (primary) hypertension; Z79.4 Long term (current) use of insulin; Z79.899 Other long term (current) drug therapy
CPT/HCPCS: 36415; 70450; 71045; 74176; 80048; 80053; 81001; 82962; 83605; 83735; 84443; 84484; 85025; 87040; 87086; 93005; 97163; 99291; G0378; J1815